=== PATIENT | female | born 1985 | race Caucasian/White ===

== ENCOUNTER → 2018-07-22 13:16 | Outpatient (CLI) | payer OTHER, MEDICAID, SELFPAY ==
[2018-07-22 14:03] LABS: Add Manual Diff / Slide Review NO; Basophils Percent Auto 0.5 % (0-2); Eosinophils Percent Auto 2.1 % (2-4); Hemoglobin 13.1 g/dL (12.0-16.0); Lymphocytes Percent Auto 18.1 % (25-40); Mean Corpuscular HGB Conc 34.6 % (30-36); Mean Corpuscular Hemoglobin 33.1 PG (26-34); Mean Corpuscular Volume 95.5 fL (80-100); Monocytes Percent Auto 6.4 % (3-14); Neutrophils Absolute Auto 7700 /uL (3000-5900); Neutrophils Percent Auto 72.9 % (50-75); Platelet Count 174 X10^3/uL (150-400); Red Blood Cell Count 3.98 X10^6/uL (4.0-5.2); Red Cell Distribution Width 12.3 % (11.6-14.8); White Blood Cell Count 10.5 X10^3/uL (4.5-11.0)
[2018-07-22 14:14] LABS: Appearance Urine UA CLEAR; Bilirubin Urine UA NEGATIVE (NEGATIVE); Color Urine UA YELLOW; Glucose Urine UA NEGATIVE (Normal); Ketones Urine UA NEGATIVE (NEGATIVE); Leukocyte Esterase Urine UA NEGATIVE (NEGATIVE); Nitrite Urine UA Negative (Negative); Occult Blood Urine UA NEGATIVE (Negative); Protein Urine UA NEGATIVE (Negative); Urobilinogen Urine UA 0.2 E.U./dL (0.2); pH Urine UA 5.5 (4.5-8.0)
[2018-07-22 17:32] LABS: Hepatitis B Surface Antigen NEGATIVE s/c (NEGATIVE); Rubella Antibody IgG 21.6 IU/mL (>15)
[2018-07-22 17:46] LABS: HIV 1 and 2 Antibody NEGATIVE (NEGATIVE); Hep C Virus Ab w/Reflex Quant NEGATIVE s/c (NEGATIVE)
[2018-07-26 14:25] LABS: HSV 2 IGG AB < 0.90 index (< 0.90); HSV1IGG < 0.90 index (< 0.90)
[2018-07-28 12:24] LABS: Rapid Plasma Reagin NON-REACTIVE
== END ==
PROVIDERS: PCP Family Medicine; Visit Provider Family Medicine
DX: Z34.01 Encounter for supervision of normal first pregnancy, first trimester (principal); Z3A.01 Less than 8 weeks gestation of pregnancy
CPT/HCPCS: 36415; 80055; 81003; 86695; 86696; 86703; 86787; 86803; 86850; 86900; 86901; 87086

== ENCOUNTER → 2018-09-26 08:09 | Outpatient (CLI) | payer OTHER, MEDICAID, SELFPAY ==
--- NOTE | 2018-09-26 08:10 | DI.US.S_ITS ---
PROCEDURE: US OB >= 14 WEEKS FETUS INDICATIONS: anatomy scan OUTSIDE/PRIOR DATING DATA: Last menstrual period (LMP): Not available. LMP-based estimated date of delivery (PARVIN): Not available. First dating scan (date and location): 07/22/18. Estimated date of delivery (PARVIN) from first dating scan: 02/07/19. TECHNIQUE: Real-time scanning was performed of the fetus, with image documentation and biometric measurements. Endovaginal scanning: Not necessary for this study. COMPARISON: [facility], , OB >= 14 WEEKS FETUS, 07/22/2018, 12:33. FINDINGS: General: A single living intrauterine gestation is present. Presentation: Vertex. Placenta: Placental position is anterior, without previa. Amniotic fluid index: 17.7 cm, normal range is 5-24 cm. heart rate: 137 beats per minute. Maternal cervical canal: 4.4 cm long. Normal lower limit is 2.5 cm. biometrics: Biparietal diameter: 5.4 cm, 22 weeks 2 days Head circumference: 19.9 cm, 22 weeks 0 days Abdominal circumference: 17.1 cm, 22 weeks 1 day Femur length: 3.7 cm, 21 weeks 6 days Estimated gestational age from initial scan: 20 weeks 6 days Composite gestational age from present scan: 22 weeks 1 day Estimated weight and percentile: 648 g, 95th percentile Measurement variability for biometric dating: +/- 7 days from 14 weeks to 15 weeks 6 days gestation, +/- 10 days from 16 weeks to 21 weeks 6 days gestation, +/- 2 weeks from 22 weeks to 27 weeks 6 days gestation, +/- 3 weeks for 28 weeks gestation or later. weight reference: 4500 g or EFW >90/95% is considered macrosomia or large for gestational age. EFW <10% is small for gestational age. EFW 5% or less is considered intra-uterine growth restriction. Anatomic survey: Neuro: Ventricles are non-dilated at less than 10 mm. Cisterna magna is normal at 3-11 mm. Cerebellum is normal in size and morphology. Nuchal skin fold: Normal at less than 6 mm between 14-21 weeks gestational age. Face: Nose and lips, facial profile are normal. Spine: No evidence for spina bifida. Heart: 4-chambered heart is present, with normal ventricular outflow tracts. Diaphragm: Diaphragm is intact. Stomach: Left-sided stomach is present. Kidneys: No hydronephrosis. Normal is less than 5 mm in 2nd trimester, less than 7 mm in 3rd trimester. Cord: 3-vessel cord has orthotopic insertion. Bladder: Normal in size. Extremities: All 4 extremities identified. IMPRESSION: Appropriate interval growth, no anomaly seen. The delivery date is projected to be centered on 02/07/19, plus or -5 days, based on the first available OB ultrasound. Dictated by: Eliezer Garcia M.D. on 09/26/2018 at 10:09 Approved by: Eliezer Garcia M.D. on 09/26/2018 at 10:23
== END ==
PROVIDERS: PCP Family Medicine; Visit Provider Family Medicine
DX: Z36.89 Encounter for other specified antenatal screening (principal); Z3A.22 22 weeks gestation of pregnancy
CPT/HCPCS: 76811

== ENCOUNTER → 2018-10-17 09:03 | Outpatient (CLI) | payer OTHER, MEDICAID, SELFPAY ==
[2018-10-20 18:07] LABS: QuantiFERON TB NEGATIVE (Negative)
== END ==
PROVIDERS: PCP Family Medicine; Visit Provider Family Medicine
DX: Z11.1 Encounter for screening for respiratory tuberculosis (principal)
CPT/HCPCS: 36415; 86480

== ENCOUNTER → 2018-11-21 08:39 | Outpatient (CLI) | payer OTHER, MEDICAID, SELFPAY ==
[2018-11-21 10:35] LABS: GTT (PREG) 1 Hour PP 50gm Dose 109 mg/dL (76-139)
== END ==
PROVIDERS: PCP Family Medicine; Visit Provider Family Medicine
DX: Z34.92 Encounter for supervision of normal pregnancy, unspecified, second trimester (principal)
CPT/HCPCS: 36415; 82950

== ENCOUNTER → 2019-01-16 09:13 | Outpatient (CLI) | payer OTHER, MEDICAID, SELFPAY ==
[2019-01-17 10:15] LABS: Strep Grp B PCR NEG for Grp B Strep
== END ==
PROVIDERS: PCP Family Medicine; Visit Provider Family Medicine
DX: Z34.93 Encounter for supervision of normal pregnancy, unspecified, third trimester (principal)
CPT/HCPCS: 87653

== ENCOUNTER 2019-02-15 08:32 | Outpatient (CLI) | payer OTHER, MEDICAID, SELFPAY ==
--- NOTE | 2019-02-15 09:03 | PM.OBTRLD ---
Visit Information Visit Information Date of evaluation: 02/15/19 Primary OB Provider: Caren Jackson On-call OB Provider: Johanny Kang Reason for Evaluation: Yes non-stress test non-stress test reason: other (Postdates) [facility]LY [facility], [facility] Social History Smoking Status: Never smoker Social History Smoking Status: Never smoker Evaluation Evaluation Baseline heart rate: 125 Variability: Average (6-10) monitor accelerations: Present monitor decelerations: Absent Contraction Frequency (minutes): 5 Uterine Contraction Intensity: Mild Category of Tracing: I Cervical dilation (cm): 1 Cervical effacement (%): 50 station: -3 Diagnosis, Plan/Disposition Final Diagnosis (1) Post-dates : Current Visit: Yes Status: Acute Plan/Disposition Plan: Patient to return in 3 days for NST and has induction scheduled OB Disposition: home
== END 2019-02-15 09:10 | disposition home or self-care (01) ==
LOC: OB 12:45
PROVIDERS: PCP Family Medicine; Visit Provider Family Medicine
DX: O48.0 Post-term pregnancy (principal); Z3A.41 41 weeks gestation of pregnancy
CPT/HCPCS: 59025; G0378; G0379

== ENCOUNTER 2019-02-18 11:04 | Outpatient (CLI) | payer OTHER, MEDICAID, SELFPAY ==
--- NOTE | 2019-02-18 12:22 | PM.OBTRLD ---
Visit Information Visit Information Date of evaluation: 02/18/19 Primary OB Provider: Caren Jackson On-call OB Provider: Johanny Kang Reason for Evaluation: Yes non-stress test non-stress test reason: other (post dates) [facility] Social History Smoking Status: Never smoker Social History Smoking Status: Never smoker Objective Imaging US - abdomen: My impression: Normal amniotic fluid. movement and good tone noted. breathing not observed. Evaluation Evaluation Baseline heart rate: 120 Variability: Moderate (11-25) monitor accelerations: Present monitor decelerations: Absent Contraction Frequency (minutes): 5 Uterine Contraction Intensity: Mild Category of Tracing: I Cervical dilation (cm): 3 Cervical effacement (%): 80 station: -1 Diagnosis, Plan/Disposition Final Diagnosis (1) Post-dates : Current Visit: No Status: Acute Plan/Disposition Plan: Return tomorrow for repeat nonstress test OB Disposition: home
== END 2019-02-18 12:42 | disposition home or self-care (01) ==
LOC: LABOR 11:37 → OB 02-21 12:24
PROVIDERS: PCP Family Medicine
DX: O48.0 Post-term pregnancy (principal)
CPT/HCPCS: 59025; G0378; G0379

== ENCOUNTER 2019-02-19 09:46 | Inpatient (IN) | payer OTHER, MEDICAID, SELFPAY ==
--- NOTE | 2019-02-19 13:15 | PM.OBHP.1 ---
OB HPI Date/Time Date of admission: 02/19/19 Date Patient Seen: 02/19/19 Time Patient Seen: 13:16 History of Present Condition Chief complaint: LABOR : 1 Para: 0 Narrative: Fay Robert is a 34 year old female one para 0 who was at 41-,4/7 weeks. Patient declined earlier induction of labor unwanted weight 242 weeks. Patient was seen earlier today with intermittent contractions was 3 cm dilated. Patient is walked for couple hours and is back now if roughly 4 cm 80% with the vertex at a minus two station. There is a bulging bag. History of Present care: good care and pounds weight gain (40) Dating criteria: LMP confirmed by 1st trimester US Ultrasounds: normal 1st trimester US and normal mid trimester US Obstetrical complications: none Medical complications: none Narrative: Patient is a 34-year-old white female one para 0 at 41-,4/7 weeks who presents in early labor. Patient is had uneventful . patient declined all testing for abnormalities. her group B strep done at 36 weeks was negative. Preadmission Labs Blood type: A (+) positive -: Antibody screen: negative, Cystic fibrosis screen: unknown, GBS status: negative, HBsAG: negative, HIV: negative, HSV 1: negative, HSV 2: negative and RPR/VDLR: negative -: Rubella: immune and Varicella: immune HCT: 38 HCAB: negative PAP: Normal Integrated screen: Declined Sequential screen: Declined Cell-free DNA: Declined 1 hr GTT: 109 Evaluation Evaluation Baseline heart rate: 140 Variability: Average (6-10) monitor accelerations: Present monitor decelerations: Absent Contraction Frequency (minutes): 4 Uterine Contraction Intensity: Moderate Category of Tracing: I Cervical dilation (cm): 4 Cervical effacement (%): 80 station: -2 Non-invasive Membranes Rupture Test: negative [facility] Social History Smoking Status: Never smoker Social History Smoking Status: Never smoker Meds Home Medications Medication Instructions Recorded Confirmed Type cetirizine 10 mg capsule 10 mg PO .prn cap 07/22/18 07/22/18 History 1 tab PO DAILY 07/22/18 07/22/18 History vitamin,calcium,ahjjtwev-wkwf-hmfuz acid tablet breast pump #1 each 01/16/19 Rx Allergies Allergy/AdvReac Type Severity Reaction Status Date / Time meperidine [From Skyerol] AdvReac Severe seizures Verified 07/22/18 12:25 Review of Systems Review of Systems All systems reviewed & are unremarkable except as noted in HPI and below Exam Const General: cooperative and healthy appearing [facility] Head: normal to inspection Ears: hearing grossly normal bilaterally Nose: external nose normal Face and sinus: normal facial exam Mouth: oral mucosae normal, lip normal, tongue normal and moist mucous membranes Teeth and gingiva: dentition normal Throat: posterior oropharynx normal Eyes General: appearance normal, both eyes and all related structures Neck Neck: normal visual inspection and full ROM Chest Chest: normal inspection of the chest and normal palpation of entire chest wall Breast inspection: normal inspection of the breasts and normal inspection of the axillae Breast Palpation: normal palpation of the breasts and normal palpation of the axillae Resp Effort & Inspection: normal respiratory effort Auscultation: clear to auscultation bilaterally Cardio Palpation: normal PMI Rate: regular rate Rhythm: regular rhythm Heart Sounds: S1 normal and S2 normal GI Inspection: normal to inspection Palpation: soft and no hepatosplenomegaly Percussion: normal to percussion Auscultation: normal bowel sounds Manual OB Exam: dilated 4, effaced 75% and station -2 Uterus Location (Fundal Height): 39 Presentation: vertex Estimated Weight (lbs): 8 Other: GIOVANNY presentation Back/Spine/Pelvis Thoracic/Lumbar Spine: thoracic and lumbar spine normal to inspection Skin General: no rashes or lesions noted Neuro General: alert, oriented x3, tone normal and moves all extremities Cognition: normal cognition Speech: speech normal Gait: normal gait Motor: muscle tone normal throughout Sensory Exam: no sensory deficits noted Extrem General: normal to inspection and normal exam except as noted Psych Appearance: grossly normal and well kempt Mental Status: mental status grossly normal Speech and Movement: speech and movement normal Objective ECG Impression: Postdates 41 and four 7th weeks Earlier labor Patient declines rupture membranes or other interventions at this time Category one tracing Contractions every 4 minutes of moderate quality Assessment and Plan Assessment and Plan Assessment and Plan narrative: Term intrauterine 41 and four 7th with Vertex presentation ANA presentation Membranes intact Early indolent labor Plan is for Hep-Lock and observation
--- NOTE | 2019-02-19 13:27 | P.HPOB_ITS ---
OB HPI Date/Time Date of admission: 02/19/19 Date Patient Seen: 02/19/19 Time Patient Seen: 13:16 History of Present Condition Chief complaint: LABOR : 1 Para: 0 Narrative: Fay Robert is a 34 year old female one para 0 who was at 41- ,4/7 weeks. Patient declined earlier induction of labor unwanted weight 242 weeks. Patient was seen earlier today with intermittent contractions was 3 cm dilated. Patient is walked for couple hours and is back now if roughly 4 cm 80% with the vertex at a minus two station. There is a bulging bag. History of Present care: good care and pounds weight gain (40) Dating criteria: LMP confirmed by 1st trimester US Ultrasounds: normal 1st trimester US and normal mid trimester US Obstetrical complications: none Medical complications: none Narrative: Patient is a 34-year-old white female one para 0 at 41-,4/7 weeks who presents in early labor. Patient is had uneventful . patient declined all testing for abnormalities. her group B strep done at 36 weeks was negative. Preadmission Labs Blood type: A (+) positive -: Antibody screen: negative, Cystic fibrosis screen: unknown, GBS status: negative, HBsAG: negative, HIV: negative, HSV 1: negative, HSV 2: negative and RPR/VDLR: negative -: Rubella: immune and Varicella: immune HCT: 38 HCAB: negative PAP: Normal Integrated screen: Declined Sequential screen: Declined Cell-free DNA: Declined 1 hr GTT: 109 Evaluation Evaluation Baseline heart rate: 140 Variability: Average (6-10) monitor accelerations: Present monitor decelerations: Absent Contraction Frequency (minutes): 4 Uterine Contraction Intensity: Moderate Category of Tracing: I Cervical dilation (cm): 4 Cervical effacement (%): 80 station: -2 Non-invasive Membranes Rupture Test: negative [facility] Social History Smoking Status: Never smoker Social History Smoking Status: Never smoker Meds Home Medications Medication Instructions Recorded Confirmed Type cetirizine 10 mg capsule 10 mg PO .prn cap 07/22/18 07/22/18 History 1 tab PO DAILY 07/22/18 07/22/18 History vitamin,calcium,jsrmgqlc-wxkx-wtthp acid tablet breast pump #1 each 01/16/19 Rx Allergies Allergy/AdvReac Type Severity Reaction Status Date / Time meperidine [From Skyerol] AdvReac Severe seizures Verified 07/22/18 12:25 Review of Systems Review of Systems All systems reviewed & are unremarkable except as noted in HPI and below Exam Const General: cooperative and healthy appearing [facility] Head: normal to inspection Ears: hearing grossly normal bilaterally Nose: external nose normal Face and sinus: normal facial exam Mouth: oral mucosae normal, lip normal, tongue normal and moist mucous membranes Teeth and gingiva: dentition normal Throat: posterior oropharynx normal Eyes General: appearance normal, both eyes and all related structures Neck Neck: normal visual inspection and full ROM Chest Chest: normal inspection of the chest and normal palpation of entire chest wall Breast inspection: normal inspection of the breasts and normal inspection of the axillae Breast Palpation: normal palpation of the breasts and normal palpation of the axillae Resp Effort & Inspection: normal respiratory effort Auscultation: clear to auscultation bilaterally Cardio Palpation: normal PMI Rate: regular rate Rhythm: regular rhythm Heart Sounds: S1 normal and S2 normal GI Inspection: normal to inspection Palpation: soft and no hepatosplenomegaly Percussion: normal to percussion Auscultation: normal bowel sounds Manual OB Exam: dilated 4, effaced 75% and station -2 Uterus Location (Fundal Height): 39 Presentation: vertex Estimated Weight (lbs): 8 Other: GIOVANNY presentation Back/Spine/Pelvis Thoracic/Lumbar Spine: thoracic and lumbar spine normal to inspection Skin General: no rashes or lesions noted Neuro General: alert, oriented x3, tone normal and moves all extremities Cognition: normal cognition Speech: speech normal Gait: normal gait Motor: muscle tone normal throughout Sensory Exam: no sensory deficits noted Extrem General: normal to inspection and normal exam except as noted Psych Appearance: grossly normal and well kempt Mental Status: mental status grossly normal Speech and Movement: speech and movement normal Objective ECG Impression: Postdates 41 and four 7th weeks Earlier labor Patient declines rupture membranes or other interventions at this time Category one tracing Contractions every 4 minutes of moderate quality Assessment and Plan Assessment and Plan Assessment and Plan narrative: Term intrauterine 41 and four 7th with Vertex presentation ANA presentation Membranes intact Early indolent labor Plan is for Hep-Lock and observation
[2019-02-19 13:58] LABS: Add Manual Diff / Slide Review NO; Basophils Absolute Auto 100 /uL (0-100); Basophils Percent Auto 0.5 % (0-2); Eosinophils Absolute Auto 0 /uL (0-450); Eosinophils Percent Auto 0.2 % (2-4); Hematocrit 35.9 % (36-46); Hemoglobin 12.1 g/dL (12.0-16.0); Lymphocytes Absolute Auto 1400 /uL (1100-4500); Mean Corpuscular HGB Conc 33.6 % (30-36); Mean Corpuscular Volume 98.2 fL (80-100); Monocytes Absolute Auto 900 /uL (0-900); Monocytes Percent Auto 5.7 % (3-14); Neutrophils Absolute Auto 13500 /uL (1500-7000); Neutrophils Percent Auto 84.6 % (50-75); Platelet Count 167 X10^3/uL (150-400); Red Blood Cell Count 3.65 X10^6/uL (4.0-5.2); Red Cell Distribution Width 12.8 % (11.6-14.8)
--- NOTE | 2019-02-19 16:12 | PM.OBPNLAB ---
Date/Time Date Patient Seen: 02/19/19 Time Patient Seen: 13:45 Pain Control Pain control: tolerating well Pelvic Exam Dilation (cm): 4 Effacement (%): 80 station: -2 Amniotic membrane status: Intact Contractions Monitor mode: External Contraction frequency (min): 4 Contraction duration (min): 1 Contraction pattern: Irregular Contraction intensity: Strong/Firm Status status: Category l Heart Rate Baseline: 130 Monitor Accelerations: Present Monitor Decelerations: Absent Monitor Variability: Moderate Assessment and Plan Comments: 34yo at 41w4d here in active labor. Pt with regular painful contractions at admission, with cervical change from earlier in the day. Most likely in early labor, however due to distance to the hospital will remain here. Pt declined cervical exam at the time of this note, prior exam completed around 1pm. GBS negative, Rh positive. - Expectant management, anticipate - GBS negative, no antibiotics indicated - FHT reassuring - Does not desire epidural, natural methods for pain control discussed - Would like to limit interventions if possible. Will continue to allow to naturally progress. Discussed that early phase can last some time, but once in active phase will monitor for appropriate cervical change and if not progressing appropriately may need to intervene with AROM, pitocin, etc. Pt and partner in agreement.
[2019-02-19 19:08] VITALS: BP 123/63
[2019-02-20] MEDS: fentaNYL 100 MCG/2 ML INJ 50 MCG IV ×2 (04:38→05:53)
--- NOTE | 2019-02-20 08:12 | PM.OBPNLAB ---
Date/Time Date Patient Seen: 02/20/19 Time Patient Seen: 07:20 Pelvic Exam Dilation (cm): 4 Effacement (%): 90 station: 0 Amniotic membrane status: Ruptured Comments: thin meconium present at SROM Contractions Monitor mode: External Contraction frequency (min): 4 Contraction duration (min): 1 Contraction pattern: Irregular Contraction intensity: Strong/Firm Status status: Category l Heart Rate Baseline: 120 Monitor Accelerations: Present Monitor Decelerations: Absent Monitor Variability: Moderate Assessment and Plan Comments: 34yo at 41w5d here in active labor. Pt initially admitted in latent labor, now with more painful contractions and SROM. GBS negative, Rh positive. - Expectant management, anticipate - GBS negative, no antibiotics indicated - FHT reassuring - Epidural in place for pain control - Would like to limit interventions if possible. Will continue to allow to naturally progress. Aware that due to SROM, will need to make continued cervical change otherwise will start Pitocin. Pt and partner in agreement.
[2019-02-20] MEDS: LACTATED RINGERS 1,000 ML 100 ML IV ×3 (09:58→21:00)
[2019-02-20] MEDS: OXYTOCIN PREMIX 30 UNIT/500 ML PLAST..BAG IV (14:40)
--- NOTE | 2019-02-20 18:10 | PM.PREOP ---
Pre-operative Note Interval Note History & Physical reviewed/Exam performed by Physician: Yes Changes to H&P: No
--- NOTE | 2019-02-20 18:10 | PM.OBPNLAB ---
Date/Time Date Patient Seen: 02/20/19 Time Patient Seen: 18:00 Pain Control Pain control: epidural Pelvic Exam Dilation (cm): 10 Effacement (%): 100 station: +1 Amniotic membrane status: Ruptured Contractions Monitor mode: External Pitocin rate (mU/min): 2 Contraction frequency (min): 3 Contraction pattern: Irregular Contraction intensity: Strong/Firm Status status: Category l Heart Rate Baseline: 145 Monitor Accelerations: Present Monitor Decelerations: Absent Monitor Variability: Moderate Assessment and Plan Assessment: active labor Comments: 34yo at 41w5d here in active labor. SROM with thin meconium present earlier this morning. Pt progressed to complete dilation without intervention. Epidural was placed for pain control. Once completely dilated, pts contractions became more irregularly spaced. Pitocin was initiated, with a resultant regular contraction pattern. The pt has now been completely dilated for 5.5hrs, pushing for 4 hours, with only minimal descent. Initially pushing was ineffective due to a strong epidural, and the epidural was turned off. With the pt feeling her contractions more easily, she had more effective pushing with some descent from 0 to +1 station. Due to maternal fatigue, a vacuum was applied. It was kept in place for only one contraction, with no descent and significant resistance to pulling present. Due to failure to descend with maternal exhaustion, and concern for shoulder distocia with ongoing attempts at vacuum delivery, the decision was made to proceed with primary . The pt and her were consented for surgery. Discussed risks including but not limited to infection, bleeding including hemorrhage, damage to the baby, and damage to other organs such as her bowel and bladder. Both were in agreement with proceeding with surgery. The pt is agreeable to blood transfusion if needed. Consents were signed and placed in the chart. 2g Ancef to be given prior to surgery.
[2019-02-20] MEDS: CEFAZOLIN 2 GM/100 ML FROZ.PIGGY IV (18:30)
--- NOTE | 2019-02-20 18:54 | SUR.OPER ---
Viable male delivered at 190. Cord blood x2 and placenta sent with L&D RN.
[2019-02-20] MEDS: ACETAMINOPHEN IV 1,000 MG/100 ML VIAL 400 MG IV (19:15)
[2019-02-20] MEDS: BUPIVACAINE 0.5% (PF) VIAL 30 ML INJ (19:37)
[2019-02-20 19:58] VITALS: BP 142/68; PULSE 68; RESP 18; TEMP 36.6; O2SAT 97
[2019-02-20 20:03] VITALS: BP 146/70; PULSE 66; RESP 16; O2SAT 96
[2019-02-20 20:08] VITALS: BP 150/71; PULSE 68; RESP 16; O2SAT 96
--- NOTE | 2019-02-20 20:12 | SUR.PHASEI ---
REPORT CALLED TO TAPAN SILVA IN CENTER. PT IN STABLE CONDITION, VSS. IV SITE CLEAR AND INFUSING WITHOUT DIFFICULTLY. PT LAYING IN BED WITH EYES CLOSED, EASILY AROUSABLE TO VOICE WHEN SPOKEN TO. CATH SECURE AND DRAINING YELLOW CLEAR URINE. DRSG OBSERVED TO HAVE SCANT BLOOD ON ABDOMEN AND MARIAELENA-PAD OBSERVED TO HAVE SCANT BLOOD. PT DENIES ANY NAUSEA. PT STATES PAIN IS 1/10 AND IS TOLERABLE AT THIS TIME.
[2019-02-20 20:13] VITALS: BP 141/69; PULSE 64; RESP 16; TEMP 36.2; O2SAT 95
[2019-02-20 20:17] VITALS: BP 132/74; PULSE 68; RESP 16; O2SAT 96
--- NOTE | 2019-02-20 20:25 | P.OP_ITS ---
Operative Date/Time/Diagnoses Date of procedure: 02/20/19 Pre-op diagnosis: 41w5d gestation GBS negative Failure to descend Post-op diagnosis: other ( hemorrhage) Procedure & Clinicians Procedure: Primary Same procedure as scheduled: Yes Indications: Failure to descend Surgeon: Caren Jackson Termite Renewal Inspector: Rosanna Alex Anesthesia Type: Epidural Operative Notes Findings: Normal uterus, ovaries, tubes Closure Type: primary Specimen(s): none sent Applied: catheter Estimated Blood Loss (mL): 1,200 Blood products transfused: none Procedure in detail: OPERATIVE COURSE: The patient was taken to the operating room where epidural anesthesia was bolused. She was then prepared and draped in the normal sterile fashion in the dorsal supine position with a leftward tilt. Anesthesia was tested and found to be adequate. A Pfannensteil skin incision was then made with the scalpel, with excision of prior keloid scar, and carried through to the underlying layer of fascia with the scalpel. The fascia was incised in the midline and the incision extended laterally with the Gonzalez scissors. The superior aspect of the fascial incision was then grasped with Pallavi clamps, elevated, and the underlying rectus muscles dissected off bluntly and sharply where needed. Attention was then turned to the inferior aspect of the incision which, in a similar fashion, was grasped, tented up with Pallavi clamps, and the rectus muscle dissected off bluntly and sharply with Gonzalez scissors. The rectus muscles were then in the midline, and the peritoneum was identified and entered bluntly. The peritoneal incision was then extended with good visualization of the bladder. The bladder blade was then inserted and the vesicouterine peritoneum identified, grasped with pick-ups and entered sharply with the Metzenbaum scissors. The inc ision was then extended laterally and the bladder flap created digitally. The bladder blade was then reinserted and the lower uterine segment incised in a transverse fashion with the scalpel. The uterine incision was then extended superolaterally by pulling superolaterally on both sides. The bladder blade was removed. It was noted that there was one loose nuchal cord present. Due to significant descent into the pelvis, a hand was inserted vaginally and used to elevate the head while it was then flexed out of GIOVANNY position and delivered atraumaticaly. The nose and mouth were suctioned with bulb suction and the cord was clamped and cut. The infant was handed off to the waiting nursing staff. Cord blood was collected for Rh status. The placenta was then delivered with gentle cord traction. The uterus was then cleared of all clots and debris. Significant bilateral extensions, left more than right, were noted. The uterine incision was repaired with O-Vicryl in a running, locked fashion. A second layer of the same suture was used to obtain excellent hemostasis with an additional [id number] used to control uterine artery bleeding along the right side of the incision. 3-The gutters were cleared of all clots. Hysterotomy was investigated and found to be hemostatic. The bladder flap was repaired with 2-O Chromic. The peritoneum was closed with 3-O Vicryl. The fascia was reapproximated with O- Vicryl in a running fashion. The subcutaneous tissue was reapproximated with 3- O Vicryl. The skin was closed with 4-O Vicryl. ROM APPEARANCE: Meconium BABY A DELIVERY TIME: 19:02 BABY A OUTCOME: Viable BABY A SEX: Male BABY A WEIGHT: 9lb8.74oz (4330g) BABY A NUCHAL CORD: x1 BABY A # CORD VESSELS: 3 BABY A 1 MINUTE: 9 BABY A 5 MINUTES: 9 PLACENTA DELIVERY TIME: 19:03 PLACENTAL DELIVERY TYPE: Spontaneous PLACENTA APPEARANCE: Intact SPONGE AND NEEDLE COUNTS: Correct x3. DRESSING: Aquacel ANTICOAGULATION: SCDs applied prior to Surgery: Yes Preop antibiotics given (see MAR). The patient was taken to recovery room having tolerated procedure well. Complications: none Condition: stable Disposition: PACU Plan for aftercare: Normal /postoperative care support
--- NOTE | 2019-02-20 20:30 | SUR.PHASEI ---
PT TRANSFERRED TO CENTER. PT FAMILY IN ROOM UPON ARRIVAL. PT ALERT AND TALKING TO STAFF. BEDSIDE REPORT GIVEN TO TAPAN SILVA AND TRANSFERRED CARE OF PT TO HER AT THAT TIME.
[2019-02-20] MEDS: KETOROLAC 30 MG/ML VIAL IV (21:00)
[2019-02-21] MEDS: KETOROLAC 30 MG/ML VIAL IV ×3 (03:08→15:08)
[2019-02-21 06:46] LABS: Add Manual Diff / Slide Review NO; Basophils Absolute Auto 0 /uL (0-100); Basophils Percent Auto 0.2 % (0-2); Eosinophils Absolute Auto 0 /uL (0-450); Eosinophils Percent Auto 0.3 % (2-4); Hematocrit 22.6 % (36-46); Hemoglobin 7.9 g/dL (12.0-16.0); Lymphocytes Absolute Auto 1400 /uL (1100-4500); Lymphocytes Percent Auto 9.3 % (25-40); Mean Corpuscular Hemoglobin 33.7 PG (26-34); Mean Corpuscular Volume 96.3 fL (80-100); Monocytes Absolute Auto 1100 /uL (0-900); Monocytes Percent Auto 7.1 % (3-14); Neutrophils Absolute Auto 12600 /uL (1500-7000); Neutrophils Percent Auto 83.1 % (50-75); Platelet Count 127 X10^3/uL (150-400); Red Blood Cell Count 2.34 X10^6/uL (4.0-5.2); Red Cell Distribution Width 12.9 % (11.6-14.8); White Blood Cell Count 15.1 X10^3/uL (4.5-11.0)
[2019-02-21] MEDS: PRENATAL VIT,CALC/IRON/FOLIC 1 TABLET 1 TAB PO (09:06)
[2019-02-21] MEDS: DOCUSATE 250 MG CAPSULE PO (09:07)
--- NOTE | 2019-02-21 09:27 | PM.OBPN.1 ---
Subjective - OB Patient comments: no complaints baby status: doing well and nursing well [place] feeding status: exclusively breast feeding Date Patient Seen: 02/21/19 Time Patient Seen: 08:30 Interval history: The pt reports that overall she is doing well. Her pain has been adequately controlled. She has been able to ambulate in the room, but has not yet voided. She is not yet passing flatus. She is with a nipple shield due to inverted nipples, but feels that baby is latching well thus far. Exam Vital Signs (past 8 hours): Oxygen Delivery Method Room Air Narrative Exam Narrative: Gen: NAD, sitting comfortably in bed, appears well CV: RRR, no murmurs Resp: clear to auscultation bilaterally Abd: soft, appropriately tender, fundus firm and at the umbilicus, nondistended, normoactive bowel sounds Ext: trace edema Objective Labs Result Diagrams: 02/21/19 06:27 Labs: Laboratory Results - last 24 hr 02/21/19 06:27 WBC 15.1 H RBC 2.34 L Hgb 7.9 L Hct 22.6 L MCV 96.3 MCH 33.7 MCHC 35.0 RDW 12.9 Plt Count 127 L Neut % (Auto) 83.1 H Lymph % (Auto) 9.3 L [place] % (Auto) 7.1 Eos % (Auto) 0.3 L Baso % (Auto) 0.2 Neut # (Auto) 04520 H Lymph # (Auto) 1400 [place] # (Auto) 1100 H Eos # (Auto) 0 Baso # (Auto) 0 Assessment & Plan (1) S/P primary low transverse : Status: Acute Current Visit: Yes (2) hemorrhage: Status: Acute Current Visit: Yes (3) Acute blood loss anemia: Status: Acute Current Visit: Yes Plan Comments: s/p primary for failure to descend at 41w5d. Surgery complicated by hemorrhage due to arterial bleeding, which was ultimately controlled well intraoperatively. Pt with resultant significant anemia, however currently asymptomatic. Pt doing well overall. - Normal /postoperative care - Iron supplement BID - support - Encouraged ambulation Time Spent With Patient Total time spent is greater than 50% in coordination of care (as documented) at patient's floor/unit and/or counseling patient: 25 - 35 minutes
--- NOTE | 2019-02-21 09:30 | P.PNOB_ITS ---
Subjective - OB Patient comments: no complaints baby status: doing well and nursing well [place] feeding status: exclusively breast feeding Date Patient Seen: 02/21/19 Time Patient Seen: 08:30 Interval history: The pt reports that overall she is doing well. Her pain has been adequately controlled. She has been able to ambulate in the room, but has not yet voided. She is not yet passing flatus. She is with a nipple shield due to inverted nipples, but feels that baby is latching well thus far. Exam Vital Signs (past 8 hours): Oxygen Delivery Method Room Air Narrative Exam Narrative: Gen: NAD, sitting comfortably in bed, appears well CV: RRR, no murmurs Resp: clear to auscultation bilaterally Abd: soft, appropriately tender, fundus firm and at the umbilicus, nondistended, normoactive bowel sounds Ext: trace edema Objective Labs Result Diagrams: 02/21/19 06:27 Labs: Laboratory Results - last 24 hr 02/21/19 06:27 WBC 15.1 H RBC 2.34 L Hgb 7.9 L Hct 22.6 L MCV 96.3 MCH 33.7 MCHC 35.0 RDW 12.9 Plt Count 127 L Neut % (Auto) 83.1 H Lymph % (Auto) 9.3 L [place] % (Auto) 7.1 Eos % (Auto) 0.3 L Baso % (Auto) 0.2 Neut # (Auto) 72597 H Lymph # (Auto) 1400 [place] # (Auto) 1100 H Eos # (Auto) 0 Baso # (Auto) 0 Assessment & Plan (1) S/P primary low transverse : Status: Acute Current Visit: Yes (2) hemorrhage: Status: Acute Current Visit: Yes (3) Acute blood loss anemia: Status: Acute Current Visit: Yes Plan Comments: s/p primary for failure to descend at 41w5d. Surgery complicated by hemorrhage due to arterial bleeding, which was ultimately controlled well intraoperatively. Pt with resultant significant anemia, however currently asymptomatic. Pt doing well overall. - Normal /postoperative care - Iron supplement BID - support - Encouraged ambulation Time Spent With Patient Total time spent is greater than 50% in coordination of care (as documented) at patient's floor/unit and/or counseling patient: 25 - 35 minutes
[2019-02-21] MEDS: OXYCODONE/ACETAMINOPHEN 5/325 TABLET 2 TAB PO ×2 (18:49→21:38)
[2019-02-21 21:37] VITALS: TEMP 37.9
[2019-02-21] MEDS: IBUPROFEN 600 MG TABLET PO (21:37)
[2019-02-21] MEDS: FERROUS SULFATE 325 MG TABLET PO (21:38)
[2019-02-22] MEDS: IBUPROFEN 600 MG TABLET PO ×3 (03:27→14:10)
[2019-02-22] MEDS: OXYCODONE/ACETAMINOPHEN 5/325 TABLET 2 TAB PO ×2 (03:27→14:10)
--- NOTE | 2019-02-22 07:53 | P.PNOB_ITS ---
Subjective - OB Date Patient Seen: 02/22/19 Time Patient Seen: 07:35 Interval history: Pt reports feeling well this morning. She continues to ambulate and is voiding without difficulty. She is passing flatus. Her pain has been well controlled. Her lochia is decreasing appropriately. She denies any lightheadedness, palpitations, SOB. She is with the nipple shield. She does have significant sores on her nipples, but states the pain is improving. Exam Vital Signs (past 8 hours): Oxygen Delivery Method Room Air Narrative Exam Narrative: Gen: NAD, sitting comfortably in bed, appears well CV: RRR, no murmurs Resp: clear to auscultation bilaterally Abd: soft, nondistended, appropriately tender, fundus firm and below the umbilicus, dressing c/d/i with small amount of dried blood centrally, norm oactive bowel sounds Ext: trace edema Objective Labs Result Diagrams: 02/21/19 06:27 Assessment & Plan (1) S/P primary low transverse : Status: Acute Current Visit: Yes (2) hemorrhage: Status: Acute Current Visit: Yes (3) Acute blood loss anemia: Status: Acute Current Visit: Yes Plan Comments: 34yo POD#2 s/p primary for failure to descend at 41w5d. Surgery complicated by hemorrhage due to arterial bleeding, which was ultimately controlled well intraoperatively. Pt with resultant significant anemia, however currently asymptomatic. Pt doing well overall. - Normal /postoperative care - Iron supplement BID - support - Encouraged ambulation Time Spent With Patient Total time spent is greater than 50% in coordination of care (as documented) at patient's floor/unit and/or counseling patient: 25 - 35 minutes
[2019-02-22] MEDS: DOCUSATE 250 MG CAPSULE PO (08:47)
[2019-02-22] MEDS: PRENATAL VIT,CALC/IRON/FOLIC 1 TABLET 1 TAB PO (08:47)
[2019-02-22] MEDS: FERROUS SULFATE 325 MG TABLET PO (08:49)
[2019-02-22 13:09] VITALS: BP 98/58; PULSE 79; RESP 16; TEMP 37.3
--- NOTE | 2019-02-22 13:11 | PM.OBDS.1 ---
Discharge Providers Date of admission: 02/19/19 09:46 Discharge Date: 02/22/19 Primary care physician: Caren Jackson MD Consults: 02/20/19 20:49 Consult to Manufacturing Plant Manager Routine Comment: Discharge provider: Caren Jackson MD Summary Date Patient Seen: 02/23/19 Time Patient Seen: 07:40 Procedures: Primary Hospital Course: The pt was initially admitted in latent labor. The morning after admission, she had SROM and then progressed to complete dilation. Pitocin was initiated due to spacing of her contractions. After a prolonged 2nd stage, a vacuum was applied. After one contraction with no descent and significant resistance on the vacuum, the decision was made to proceed with primary for failure to descend. During surgery, there was a significant arterial bleed resulting in hemorrhage. This was controlled intraoperatively. , there were no complications. The pt was started on an iron supplement due to acute blood loss anemia. At the time of discharge, she was voiding, ambulating, and passing flatus without difficulty. Her lochia was decreasing appropriately. She was with the assistance of a nipple shield. She will f/u with as an outpatient. The pt will f/u on 02/27 for incision check. Peripartum Data Delivery Method: Section Procedures: Primary complications: none 1: Gender: Male Disposition of : home Discharge Diagnosis (1) S/P primary low transverse : Status: Acute (2) hemorrhage: Status: Acute (3) Acute blood loss anemia: Status: Acute Status at Discharge Cognitive/behavioral status at discharge: oriented Functional status at discharge: independent ambulation Overall status at discharge: patient is progressing back to baseline Time Spent with Patient Total time spent providing and/or coordinating discharge services: Greater than 30 minutes Specific discharge activities: No intercourse for 6 weeks No driving for 2 weeks No heavy lifting Objective Labs Result Diagrams: 02/21/19 06:27 Exam Vital Signs (past 8 hours): Oxygen Delivery Method Room Air Narrative Exam Narrative: Please see note from earlier today. Discharge Plan Discharge Plan Patient Disposition: Home Discharge comment: No intercourse for 6 weeks Gradual return to activities No driving until able to rotate easily in vehicle and not taking narcotic pain medication, usually around 2 weeks No heavy lifting Discharge Med Rec/Prescriptions Prescriptions: New acetaminophen 325 mg Tablet 650 mg PO Q6HR PRN (Reason: As Needed For Fever/Mild Pain) Qty: 30 RF: 0 oxycodone-acetaminophen 5-325 mg Tablet 1 tab PO Q4HR PRN (Reason: Pain, Severe (7-10)) Qty: 30 RF: 0 ferrous sulfate 325 mg (65 mg iron) Tablet 325 mg PO BIDWM Qty: 60 RF: 0 ibuprofen 600 mg Tablet 600 mg PO Q6HR PRN (Reason: As Needed For Fever/Mild Pain) Qty: 30 RF: 0 docusate sodium 250 mg Capsule 250 mg PO DAILY Qty: 30 RF: 0 Continued prenat.vits,mario,vov-usnc-kekkg [ Vitamin] tablet 1 tab PO DAILY RF: 0 cetirizine [Zyrtec] 10 mg capsule 10 mg PO .prn RF: 0 breast pump device .ROUTE .MEDSUPPLY Qty: 1 RF: 0 Follow up/Referrals: Caren Jackson MD [Primary Care Provider] - 02/27/19 2:45 pm Provider Discharge Instructions Diet: Regular Skin/Wound/Dressing Care Report to your healthcare provider any signs of infection, such as:: chills, fever, increased pain, unusual drainage and unusual redness Dressing: Keep dressing on until follow-up appointment next week. Visit Report/Discharge Packet Instructions: DI for Stand Alone Forms: Discharge: Care Discharge Data Primary Care Provider: Caren Jackson Attending Provider: Juancarlos Mckeon Admit Date/Time: 02/19/19 09:46 Discharges patient from system. Discharge Date/Time: 02/22/19 14:45
== END 2019-02-22 14:45 | disposition home or self-care (01) | DRG 540 ==
PROVIDERS: PCP Family Medicine
PROC: 10D00Z1 Extraction of Products of Conception, Low, Open Approach (ICD-10-PCS; CPT 59514; principal; 2019-02-20 18:10)
DX: O48.0 Post-term pregnancy (principal); Z3A.41 41 weeks gestation of pregnancy; Z37.0 Single live birth; O75.0 Maternal distress during labor and delivery; O66.5 Attempted application of vacuum extractor and forceps; O66.0 Obstructed labor due to shoulder dystocia; O62.0 Primary inadequate contractions; O72.1 Other immediate postpartum hemorrhage; D62 Acute posthemorrhagic anemia
CPT/HCPCS: 01967; 01968; 36415; 59025; 59050; 59514; 76815; 85025; 86850; 86900; 86901; G0379; J0131; J0690; J1885; J2274; J2590; J3010